=== PATIENT | female | born 1995 ===

== ENCOUNTER 2019-03-30 06:00 | Day surgery (SDC) | payer OTHER | END 2019-03-30 14:05 | disposition home or self-care (01) | LOC: CIR.AMB 06:00 → ADM 09:45 → CIR.AMB 09:45 | DX: H72.2X2 Other marginal perforations of tympanic membrane, left ear (principal); H66.92 Otitis media, unspecified, left ear; H73.892 Other specified disorders of tympanic membrane, left ear ==